=== PATIENT | male | born 1995 | race African-American/Black ===

== ENCOUNTER 2018-12-21 13:43 | Emergency (ER) | payer SELFPAY ==
[2018-12-21] MEDS ORDERED: IPRATROPIUM (NEB) 0.5 MG/2.5 ML AMP NEB (14:14)
[2018-12-21] MEDS ORDERED: ALBUTEROL 0.083% (NEB) 2.5 MG/3 ML AMP NEB (14:14)
[2018-12-21] MEDS: DEXAMETHASONE 10 MG/ML 1 ML INJ IM (14:27)
== END 2018-12-21 15:25 | disposition left against medical advice (07) ==
LOC: FTE 13:43
DX: J45.901 Unspecified asthma with (acute) exacerbation (principal)
CPT/HCPCS: 99282; J1100